=== PATIENT | female | born 1985 | race Caucasian/White ===

== ENCOUNTER 2024-11-28 14:49 | Outpatient (CLI) | payer BC ==
[2024-11-28] MEDS ORDERED: Iopamidol 30 ML ONE (14:50)
== END 2024-11-28 14:50 | disposition home or self-care (01) ==
LOC: RAD 14:49
PROVIDERS: ATTEND Obstetrics & Gynecology
DX: Z31.9 Encounter for procreative management, unspecified (principal)
CPT/HCPCS: 58340; 74740; Q9967